=== PATIENT | male | born 1980 | race Caucasian/White ===

== ENCOUNTER 2017-04-11 20:24 | Emergency (ER) | payer SELFPAY ==
[~2017-04-11] VITALS: Ht 185.4 cm; Wt 65.0 kg
[~2017-04-11 20:24] MED LIST: ADVI200C9; ALBU17I
[2017-04-11 20:31] VITALS: BP 133/84; PULSE 90; RESP 16; TEMP 98.1; O2SAT 95
--- NOTE | 2017-04-11 20:41 | PD ---
HPI Chief Complaint: Chest Pain Time Seen by Provider: 20:33 Travel History International Travel<30 days: No Contact w/Intl Traveler<30days: No Traveled to known affect area: No History of Present Illness HPI 37-year-old male came to the emergency room with history of sudden onset of chest pain while he was sitting with his girlfriend. His girlfriend is giving majority of the history since patient seems to be more stoic. She says that he had drank some alcohol. Upon asking patient said he had his regular which was 8 -10 beers. She says that he suddenly started to get very anxious and worked up about his and his children. At that point he started going into some difficulty breathing almost like panic attack. Eventually he had calmed down and they went for a walk and afterwards he sat down. At this point he started getting anxious again and clutching his chest. Patient was making sounds like wheezing or stridor as described by the girlfriend. She called 911. As per her his color did not change but he was slightly diaphoretic. EMS gave him 4 baby aspirins to chew and sublingual nitroglycerin spray. Currently patient says his pain is 2 and half out of 10. He seemed comfortable but not very forthcoming with history. Patient denied doing any drugs. [facility], [facility] Past Medical History Narrative Medical List of his past medical, surgical, social and family history is reviewed from the nursing note. Asthma: Yes Anxiety: Yes Diminished Hearing: No Influenza Vaccination: No Social History Alcohol Use: Yes (X5 PER WEEK/10 BEERS/LAST INTAKE 3 DAYS AGO) Tobacco Use: Yes (FROM AGE 18-18 03/02 PPD) Substance Use: No (USED MARIJUANA IN PAST/NONE SINCE 2003) Allergies-Medications (Allergen,Severity, Reaction): Coded Allergies: No Known Allergies (Verified Allergy, Mild, 04/11/17) Comments No known drug allergies. Reported Meds & Prescriptions Reported Meds & Active Scripts Active No Active Prescriptions or Reported Medications Narrative Medication List of his home medications reviewed from the nursing note. Review of Systems Except as stated in HPI: all other systems reviewed are Neg Cardiovascular: Positive: Chest Pain or Discomfort Respiratory: Positive: Shortness of Breath Psychiatric: Positive: Anxiety Physical Exam Narrative GENERAL: Awake, alert, no obvious distress SKIN: Focused skin assessment warm/dry. HEAD: Atraumatic. Normocephalic. EYES: Pupils equal and round. No scleral icterus. No injection or drainage. ENT: No nasal bleeding or discharge. Mucous membranes pink and moist. NECK: Trachea midline. No JVD. CARDIOVASCULAR: Regular rate and rhythm. No murmur appreciated. RESPIRATORY: No accessory muscle use. Clear to auscultation. Breath sounds equal bilaterally. GASTROINTESTINAL: Abdomen soft, non-tender, nondistended. Hepatic and splenic margins not palpable. MUSCULOSKELETAL: No obvious deformities. No clubbing. No cyanosis. No edema. NEUROLOGICAL: Awake and alert. No obvious cranial nerve deficits. Motor grossly within normal limits. Normal speech. PSYCHIATRIC: Flat affect; insight and judgment normal. Data Data Last Documented VS Vital Signs Date Time Temp Pulse Resp B/P (MAP) Pulse Ox O2 Delivery O2 Flow Rate FiO2 04/11/17 22:37 88 16 130/85 (100) 98 04/11/17 20:35 Nasal Cannula 2.00 04/11/17 20:31 98.1 Orders Orders Electrocardiogram (04/11/17 20:50) Basic Metabolic Panel (Bmp) (04/11/17 20:50) Complete Blood Count With Diff (04/11/17 20:50) Magnesium (Mg) (04/11/17 20:50) Prothrombin Time / Inr (Pt) (04/11/17 20:50) Troponin I (04/11/17 20:50) Chest, Single Ap (04/11/17 20:50) Ecg Monitoring (04/11/17 20:50) Bilateral Bp Monitoring (04/11/17 20:50) Iv Access Insert/Monitor (04/11/17 20:50) Oximetry (04/11/17 20:50) Oxygen Administration (04/11/17 20:50) Sodium Chloride 0.9% Flush (Ns Flush) (04/11/17 21:00) Alcohol (Ethanol) (04/11/17 20:50) Drug Screen, Random Urine (04/11/17 20:50) Potassium Chloride (Kcl) (04/11/17 22:15) Ed Discharge Order (04/11/17 22:47) Labs Laboratory Tests Test 04/11/17 20:55 04/11/17 21:00 White Blood Count 8.8 TH/MM3 Red Blood Count 4.95 MIL/MM3 Hemoglobin 15.9 GM/DL Hematocrit 45.6 % Mean Corpuscular Volume 92.1 FL Mean Corpuscular Hemoglobin 32.2 PG Mean Corpuscular Hemoglobin Concent 35.0 % Red Cell Distribution Width 13.8 % Platelet Count 277 TH/MM3 Mean Platelet Volume 7.3 FL Neutrophils (%) (Auto) 50.0 % Lymphocytes (%) (Auto) 39.0 % Monocytes (%) (Auto) 8.4 % Eosinophils (%) (Auto) 1.6 % Basophils (%) (Auto) 1.0 % Neutrophils # (Auto) 4.4 TH/MM3 Lymphocytes # (Auto) 3.4 TH/MM3 Monocytes # (Auto) 0.7 TH/MM3 Eosinophils # (Auto) 0.1 TH/MM3 Basophils # (Auto) 0.1 TH/MM3 CBC Comment DIFF FINAL Differential Comment Prothrombin Time 10.3 SEC Prothromb Time International Ratio 1.0 RATIO Blood Urea Nitrogen 7 MG/DL Creatinine 0.82 MG/DL Random Glucose 83 MG/DL Calcium Level 8.7 MG/DL Magnesium Level 2.2 MG/DL Sodium Level 135 MEQ/L Potassium Level 3.3 MEQ/L Chloride Level 101 MEQ/L Carbon Dioxide Level 24.1 MEQ/L Anion Gap 10 MEQ/L Estimat Glomerular Filtration Rate 106 ML/MIN Troponin I LESS THAN 0.02 NG/ML Ethyl Alcohol Level 257 MG/DL Urine Opiates Screen NEG Urine Barbiturates Screen NEG Urine Amphetamines Screen NEG Urine Benzodiazepines Screen NEG Urine Cocaine Screen NEG Urine Cannabinoids Screen NEG MDM Medical Decision Making Medical Screen Exam Complete: Yes Emergency Medical Condition: Yes Medical Record Reviewed: Yes Interpretation(s) Twelve-lead EKG was reviewed by me. Normal sinus rhythm, normal axis, intraventricular conduction delay, nonspecific ST-T wave changes. Differential Diagnosis ACS, non-STEMI, atypical chest pain Narrative Course 10:45 PM blood test results of back and within acceptable limits. Patient's blood alcohol level was significantly elevated. Screen was negative. Given the story and the chest pain seems atypical and could be related to significant alcohol consumption. Patient wanted to leave and I'm okay discharging him home. He needs to follow up with his primary care. 10:46 PM I was told by the nurse that patient had left without taking the discharge paperwork since he just wanted to go home. Procedures EKG Prior to Arrival: No Diagnosis Primary Impression: Atypical chest pain Additional Impression: Needs smoking cessation education Referrals: Primary Care Physician Additional Instructions: Drink alcohol in moderation. He should think of quitting smoking. Please follow-up with your primary care and try to get an outpatient stress test. Return to ER if condition worsens or any other new concerns. Scripts No Active Prescriptions or Reported Meds Disposition: 01 DISCHARGE HOME Condition: Stable Lexis Fonseca MD Apr 11, 2017 20:41
[2017-04-11] MEDS ORDERED: SODIUM CHLORIDE 0.9% FLUSH 10 ML FLUSH IVF PRN (21:00)
--- NOTE | 2017-04-11 21:16 | RADRPT ---
EXAM DATE/TIME: 04/11/2017 21:04 [facility] COMPARISON: No previous studies available for comparison. INDICATIONS : Chest pain with shortness of breath. MEDICAL HISTORY : None. SURGICAL HISTORY : None. ENCOUNTER: Initial ACUITY: 1 day PAIN SCORE: 8/10 LOCATION: Bilateral chest FINDINGS: A single view of the chest demonstrates the lungs to be symmetrically aerated without evidence of mas s, infiltrate or effusion. The cardiomediastinal contours are unremarkable. Osseous structures are intact. CONCLUSION: The lungs are clear. Boo Singer MD on April 11, 2017 at 21:13 Board Certified Radiologist. This report was verified electronically.
[2017-04-11 21:34] LABS: AUTOMATED NEUTROPHIL # 4.4 TH/MM3 (1.8-7.7); BASOPHIL # 0.1 TH/MM3 (0-0.2); EOSINOPHIL # 0.1 TH/MM3 (0-0.4); EOSINOPHIL % 1.6 % (0.0-4.0); HEMATOCRIT 45.6 % (39.0-51.0); HEMOGLOBIN 15.9 GM/DL (13.0-17.0); LYMPHOCYTE # 3.4 TH/MM3 (1.0-4.8); MEAN CELL VOLUME 92.1 FL (80.0-100.0); MEAN CORPUSCULAR HEMOGLOBIN 32.2 PG (27.0-34.0); MEAN PLATELET VOLUME 7.3 FL (7.0-11.0); MONO % 8.4 % (0.0-8.0); MONOCYTE # 0.7 TH/MM3 (0-0.9); PLATELET COUNT 277 TH/MM3 (150-450); RED BLOOD COUNT 4.95 MIL/MM3 (4.50-5.90); RED CELL DISTRIBUTION WIDTH 13.8 % (11.6-17.2); WHITE BLOOD COUNT 8.8 TH/MM3 (4.0-11.0)
[2017-04-11 21:44] LABS: PROTHROMBIN TIME - PATIENT 10.3 SEC (9.8-11.6)
[2017-04-11 21:59] LABS: TROPONIN I LESS THAN 0.02 NG/ML (0.02-0.05)
[2017-04-11 22:03] LABS: BICARBONATE 24.1 MEQ/L (21.0-32.0); BLOOD UREA NITROGEN 7 MG/DL (7-18); CALCIUM 8.7 MG/DL (8.5-10.1); CHLORIDE 101 MEQ/L (98-107); CREATININE 0.82 MG/DL (0.60-1.30); GLOMERULAR FILTRATION RATE 106 ML/MIN (>89); GLUCOSE,RANDOM 83 MG/DL (74-106); MAGNESIUM 2.2 MG/DL (1.5-2.5); SODIUM (NA) 135 MEQ/L (136-145)
[2017-04-11] MEDS ORDERED: POTASSIUM CHLORIDE 20 MEQ CONTROLLED RELEASE TAB PO ONE (22:15)
[2017-04-11 22:37] VITALS: BP 130/85
--- NOTE | 2017-04-12 10:51 | EKG ---
Date Performed: 04/11/2017 Time Performed: 20:34:51 PTAGE: 37 years EKG: Sinus rhythm POSSIBLE RIGHT VENTRICULAR CONDUCTION DELAY BORDERLINE ECG NO PREVIOUS TRACING DOCTOR: Alexander Workman Interpretating Date/Time 04/12/2017 10:49:19
== END 2017-04-11 22:52 | disposition home or self-care (01) ==
LOC: NEPC 20:24
DX: R07.89 Other chest pain (principal); R94.31 Abnormal electrocardiogram [ECG] [EKG]; R78.0 Finding of alcohol in blood; Y90.8 Blood alcohol level of 240 mg/100 ml or more; F17.200 Nicotine dependence, unspecified, uncomplicated; F41.9 Anxiety disorder, unspecified; J45.909 Unspecified asthma, uncomplicated
CPT/HCPCS: 71045; 80048; 80307; 83735; 84484; 85025; 85610; 93005; 99285